=== PATIENT | female | born 2000 | race Caucasian/White ===

== ENCOUNTER 2018-12-09 20:52 | Emergency (ER) | payer SELFPAY, OTHER | END 2018-12-09 23:00 | disposition left against medical advice (07) | LOC: FTE 20:52 | DX: Z53.21 Procedure and treatment not carried out due to patient leaving prior to being seen by health care provider (principal) ==

== ENCOUNTER 2019-04-05 23:38 | Outpatient (CLI) | payer OTHER ==
[2019-04-06] MEDS: LACTATED RINGER'S 1,000 ML IV (00:50)
[2019-04-06] MEDS: ACETAMINOPHEN 1000MG/100ML IV 100 ML IVPB (01:01)
[2019-04-06 01:06] LABS: ADD MAN DIFF? NO
[2019-04-06 01:08] LABS: BASOPHILS % 0.4 % (0.0-2.0); EOSINOPHILS # 0.1 10^3/ul (0.0-0.5); EOSINOPHILS % 0.6 % (0.0-7.0); HEMATOCRIT 29.6 % (37.0-47.0); HEMOGLOBIN 9.8 g/dl (12.0-16.0); LYMPHOCYTES # 2.1 10^3/ul (0.8-2.9); LYMPHOCYTES % 19.9 % (18.0-55.0); MEAN CORPUSCULAR HEMOGLOBIN 30.7 pg (29.0-33.0); MEAN CORPUSCULAR HGB CONC 33.1 g/dl (32.0-37.0); MEAN CORPUSCULAR VOLUME 92.8 fl (72.0-104.0); MEAN PLATELET VOLUME 9.6 fl (7.4-10.4); MONOCYTE # 0.5 10^3/ul (0.3-0.9); MONOCYTES % 4.5 % (0.0-13.0); NEUTROPHIL # 7.7 10^3/ul (1.6-7.5); NEUTROPHILS % 73.6 % (30.0-74.0); PLATELET COUNT 228 10^3/UL (140-415); RED BLOOD COUNT 3.19 10^6/ul (4.20-5.40); RED CELL DISTRIBUTION WIDTH 13.8 % (11.5-14.5)
[2019-04-06 01:08] LABS: WHITE BLOOD COUNT 10.4 10^3/ul (4.8-10.8)
[2019-04-06 01:29] LABS: ADD UMIC YES; UR ASCORBIC ACID 20 mg/dL (NEGATIVE); UR BACTERIA FEW /HPF (NONE SEEN); UR BILIRUBIN (Dip) 1+ mg/dL (NEGATIVE); UR BLOOD (Dip) NEGATIVE (NEGATIVE); UR BUDDING YEAST MODERATE /HPF (NONE SEEN); UR CALCIUM OXALATE CRYSTAL MANY /HPF (NONE SEEN); UR CLARITY CLOUDY (CLEAR); UR COLOR AMBER (YELLOW); UR GLUCOSE (Dip) NEGATIVE (NEGATIVE); UR KETONES (Dip) TRACE mg/dL (NEGATIVE); UR LEUKOCYTE ESTERASE (Dip) 3+ Leu/ul (NEGATIVE); UR MUCUS MANY /HPF (NONE SEEN); UR NITRITE (Dip) NEGATIVE (NEGATIVE); UR RBC 57 /HPF (0-5); UR SPECIFIC GRAVITY (Dip) 1.034 (1.003-1.030); UR SQUAMOUS EPITHELIAL CELL MODERATE /HPF (FEW); UR TOTAL PROTEIN (Dip) 1+ mg/dl (NEGATIVE); UR UROBILINOGEN (Dip) 1+ mg/dL (NEGATIVE); UR WBC 129 /HPF (0-5)
[2019-04-06] MEDS: HYDROCODONE/APAP (5/325) TAB PO (02:21)
[2019-04-06] MEDS: SOD CHLORIDE 0.9% 1,000 ML IV (02:21)
[2019-04-06] MEDS ORDERED: CEFTRIAXONE 2 GM INJ IM (02:30)
[2019-04-06] MEDS: CEFTRIAXONE 2 GM/50 ML (PMX) 50 ML IVPB (02:30)
== END 2019-04-06 03:24 | disposition home or self-care (01) ==
LOC: OBT 23:38 → L-D 23:38 → OBT 04-06 03:24
DX: O23.42 Unspecified infection of urinary tract in pregnancy, second trimester (principal); O26.892 Other specified pregnancy related conditions, second trimester; R10.30 Lower abdominal pain, unspecified; Z3A.27 27 weeks gestation of pregnancy
CPT/HCPCS: 36415; 76815; 76817; 81001; 85025; 87086; 96360; 96361; 96365; 96368

== ENCOUNTER 2019-04-07 08:45 | Inpatient (IN) | payer OTHER ==
[2019-04-07 10:37] LABS: ADD MAN DIFF? NO
[2019-04-07 10:46] LABS: BASOPHILS % 0.1 % (0.0-2.0); EOSINOPHILS % 0.3 % (0.0-7.0); HEMATOCRIT 29.8 % (37.0-47.0); HEMOGLOBIN 9.8 g/dl (12.0-16.0); LYMPHOCYTES % 26.3 % (18.0-55.0); MEAN CORPUSCULAR HEMOGLOBIN 30.5 pg (29.0-33.0); MEAN CORPUSCULAR HGB CONC 32.9 g/dl (32.0-37.0); MEAN CORPUSCULAR VOLUME 92.8 fl (72.0-104.0); MEAN PLATELET VOLUME 9.9 fl (7.4-10.4); MONOCYTE # 0.4 10^3/ul (0.3-0.9); MONOCYTES % 4.9 % (0.0-13.0); NEUTROPHIL # 5.1 10^3/ul (1.6-7.5); NEUTROPHILS % 67.6 % (30.0-74.0); PLATELET COUNT 200 10^3/UL (140-415); RED BLOOD COUNT 3.21 10^6/ul (4.20-5.40); RED CELL DISTRIBUTION WIDTH 13.7 % (11.5-14.5)
[2019-04-07 10:46] LABS: WHITE BLOOD COUNT 7.5 10^3/ul (4.8-10.8)
[2019-04-07 10:57] LABS: ALANINE AMINOTRANSFERASE 20 IU/L (13-69); ALBUMIN 3.1 g/dl (3.3-4.9); ALKALINE PHOSPHATASE 85 IU/L (42-121); ANION GAP 7 (5-13); ASPARTATE AMINO TRANSFERASE 19 IU/L (15-46); BILIRUBIN,INDIRECT 0.3 mg/dl (0-1.1); BILIRUBIN,TOTAL 0.3 mg/dl (0.2-1.3); BLOOD UREA NITROGEN 2 mg/dl (7-20); CALCIUM 8.6 mg/dl (8.4-10.2); CARBON DIOXIDE 23 mmol/L (21-31); CHLORIDE 107 mmol/L (97-110); Estimated GFR > 60 mL/min (>60); GLUCOSE 98 mg/dl (70-220); POTASSIUM 3.7 mmol/L (3.5-5.1); SODIUM 137 mmol/L (135-144); TOTAL PROTEIN 6.2 g/dl (6.1-8.1)
[2019-04-07 15:41] LABS: ADD UMIC YES; UR ASCORBIC ACID NEGATIVE (NEGATIVE); UR BACTERIA FEW /HPF (NONE SEEN); UR BILIRUBIN (Dip) NEGATIVE (NEGATIVE); UR BLOOD (Dip) NEGATIVE (NEGATIVE); UR BUDDING YEAST FEW /HPF (NONE SEEN); UR CLARITY SLIGHTLY CLOUDY (CLEAR); UR COLOR YELLOW (YELLOW); UR GLUCOSE (Dip) NEGATIVE (NEGATIVE); UR KETONES (Dip) NEGATIVE (NEGATIVE); UR LEUKOCYTE ESTERASE (Dip) 3+ Leu/ul (NEGATIVE); UR MUCUS FEW /HPF (NONE SEEN); UR NITRITE (Dip) NEGATIVE (NEGATIVE); UR RBC 4 /HPF (0-5); UR SPECIFIC GRAVITY (Dip) 1.008 (1.003-1.030); UR SQUAMOUS EPITHELIAL CELL FEW /HPF (FEW); UR TOTAL PROTEIN (Dip) NEGATIVE (NEGATIVE); UR UROBILINOGEN (Dip) NEGATIVE (NEGATIVE); UR WBC 9 /HPF (0-5)
[2019-04-07] MEDS: MAGNESIUM CITRATE 300 ML BTL PO (15:49)
[2019-04-07] MEDS: AL HYDROX/MG HYDROX/SIMETH 30 ML CUP PO (17:35)
[2019-04-07] MEDS: ACETAMINOPHEN 325 MG TAB PO ×2 (17:36→23:26)
[2019-04-07] MEDS: LACTATED RINGER'S 1,000 ML IV ×2 (17:37→19:45)
[2019-04-08 00:15] LABS: AMPHETAMINE/METHAMPHETAMINE Negative (NEGATIVE); BARBITURATES Negative (NEGATIVE); BENZODIAZEPINES Negative (NEGATIVE); CANNABINOIDS Negative (NEGATIVE); COCAINE Negative (NEGATIVE); OPIATES Negative (NEGATIVE)
[2019-04-08] MEDS: LACTATED RINGER'S 1,000 ML IV ×3 (03:58→20:05)
[2019-04-08] MEDS: ACETAMINOPHEN 325 MG TAB PO ×2 (09:19→20:05)
[2019-04-08] MEDS: DOCUSATE SODIUM 100 MG CAP PO (21:14)
[2019-04-09] MEDS: LACTATED RINGER'S 1,000 ML IV ×3 (03:49→20:08)
[2019-04-09] MEDS: DOCUSATE SODIUM 100 MG CAP PO ×2 (09:16→20:46)
[2019-04-09] MEDS: PRENATAL VITAMIN PO (09:16)
[2019-04-09] MEDS: FERROUS SULFATE (EC) 325 MG TAB PO (11:43)
[2019-04-09] MEDS: CYCLOBENZAPRINE 10 MG TAB PO (11:43)
[2019-04-09] MEDS: FLUCONAZOLE 150 MG TAB PO (20:42)
[2019-04-09] MEDS: MAGNESIUM CITRATE 300 ML BTL PO (20:43)
[2019-04-10] MEDS: LACTATED RINGER'S 1,000 ML IV ×2 (03:10→11:20)
[2019-04-10] MEDS: PRENATAL VITAMIN PO (09:09)
[2019-04-10] MEDS: FERROUS SULFATE (EC) 325 MG TAB PO (09:09)
[2019-04-10] MEDS: DOCUSATE SODIUM 100 MG CAP PO (09:09)
[2019-04-10 09:39] LABS: ADD MAN DIFF? NO
[2019-04-10 09:49] LABS: BASOPHILS % 0.2 % (0.0-2.0); EOSINOPHILS % 0.4 % (0.0-7.0); HEMATOCRIT 35.2 % (37.0-47.0); HEMOGLOBIN 11.1 g/dl (12.0-16.0); LYMPHOCYTES # 2.1 10^3/ul (0.8-2.9); LYMPHOCYTES % 23.1 % (18.0-55.0); MEAN CORPUSCULAR HEMOGLOBIN 30.5 pg (29.0-33.0); MEAN CORPUSCULAR HGB CONC 31.5 g/dl (32.0-37.0); MEAN CORPUSCULAR VOLUME 96.7 fl (72.0-104.0); MEAN PLATELET VOLUME 9.8 fl (7.4-10.4); MONOCYTE # 0.3 10^3/ul (0.3-0.9); MONOCYTES % 2.7 % (0.0-13.0); NEUTROPHIL # 6.7 10^3/ul (1.6-7.5); NEUTROPHILS % 72.5 % (30.0-74.0); PLATELET COUNT 195 10^3/UL (140-415); RED BLOOD COUNT 3.64 10^6/ul (4.20-5.40); RED CELL DISTRIBUTION WIDTH 13.9 % (11.5-14.5)
[2019-04-10 09:49] LABS: WHITE BLOOD COUNT 9.3 10^3/ul (4.8-10.8)
== END 2019-04-10 18:41 | disposition home or self-care (01) | DRG 833 ==
LOC: OBT 08:45 → L-D 08:45 → OBT 16:45 → L-D 16:45
DX: O26.892 Other specified pregnancy related conditions, second trimester (principal); R10.9 Unspecified abdominal pain; K59.00 Constipation, unspecified; Z3A.27 27 weeks gestation of pregnancy
CPT/HCPCS: 74181; 76705; 76817; 76818; 80053; 80307; 81001; 85025; 87086

== ENCOUNTER 2019-04-16 18:10 | Outpatient (CLI) | payer OTHER ==
[2019-04-16 19:17] LABS: ADD MAN DIFF? NO; ADD UMIC YES; UR ASCORBIC ACID NEGATIVE (NEGATIVE); UR BACTERIA FEW /HPF (NONE SEEN); UR BILIRUBIN (Dip) NEGATIVE (NEGATIVE); UR BLOOD (Dip) NEGATIVE (NEGATIVE); UR CLARITY SLIGHTLY CLOUDY (CLEAR); UR COLOR YELLOW (YELLOW); UR GLUCOSE (Dip) NEGATIVE (NEGATIVE); UR KETONES (Dip) NEGATIVE (NEGATIVE); UR LEUKOCYTE ESTERASE (Dip) 1+ Leu/ul (NEGATIVE); UR MUCUS MODERATE /HPF (NONE SEEN); UR NITRITE (Dip) NEGATIVE (NEGATIVE); UR RBC 3 /HPF (0-5); UR SPECIFIC GRAVITY (Dip) 1.029 (1.003-1.030); UR SQUAMOUS EPITHELIAL CELL MODERATE /HPF (FEW); UR TOTAL PROTEIN (Dip) NEGATIVE (NEGATIVE); UR UROBILINOGEN (Dip) NEGATIVE (NEGATIVE); UR WBC 10 /HPF (0-5)
[2019-04-16 19:20] LABS: BASOPHILS % 0.3 % (0.0-2.0); EOSINOPHILS % 0.3 % (0.0-7.0); HEMATOCRIT 32.6 % (37.0-47.0); HEMOGLOBIN 10.3 g/dl (12.0-16.0); LYMPHOCYTES # 2.4 10^3/ul (0.8-2.9); LYMPHOCYTES % 24.3 % (18.0-55.0); MEAN CORPUSCULAR HEMOGLOBIN 30.2 pg (29.0-33.0); MEAN CORPUSCULAR HGB CONC 31.6 g/dl (32.0-37.0); MEAN CORPUSCULAR VOLUME 95.6 fl (72.0-104.0); MEAN PLATELET VOLUME 9.9 fl (7.4-10.4); MONOCYTE # 0.5 10^3/ul (0.3-0.9); MONOCYTES % 5.1 % (0.0-13.0); NEUTROPHIL # 6.9 10^3/ul (1.6-7.5); NEUTROPHILS % 68.9 % (30.0-74.0); PLATELET COUNT 227 10^3/UL (140-415); RED BLOOD COUNT 3.41 10^6/ul (4.20-5.40); RED CELL DISTRIBUTION WIDTH 14.1 % (11.5-14.5)
[2019-04-16 19:30] LABS: PLATELET COUNT 227 10^3/UL (140-415)
[2019-04-16 19:41] LABS: INR 0.98; PARTIAL THROMBOPLASTIN TIME 25.5 Sec (23.0-35.0); PROTIME 13.1 Sec (11.9-14.9)
[2019-04-16] MEDS: HYDROCODONE/APAP (5/325) TAB PO (19:57)
== END 2019-04-16 21:30 | disposition home or self-care (01) ==
LOC: OBT 18:10 → L-D 18:13 → OBT 21:30
DX: O26.92 Pregnancy related conditions, unspecified, second trimester (principal); V43.52XA Car driver injured in collision with other type car in traffic accident, initial encounter; Y92.410 Unspecified street and highway as the place of occurrence of the external cause; Z3A.28 28 weeks gestation of pregnancy
CPT/HCPCS: 76818; 81001; 85025; 85049; 85610; 85670; 85730; 86850; 86900; 86901

== ENCOUNTER 2019-05-05 10:06 | Outpatient (CLI) | payer OTHER ==
[2019-05-05 11:50] LABS: ADD UMIC YES; UR ASCORBIC ACID NEGATIVE (NEGATIVE); UR BACTERIA FEW /HPF (NONE SEEN); UR BILIRUBIN (Dip) NEGATIVE (NEGATIVE); UR BLOOD (Dip) 2+ mg/dL (NEGATIVE); UR CLARITY SLIGHTLY CLOUDY (CLEAR); UR COLOR YELLOW (YELLOW); UR GLUCOSE (Dip) NEGATIVE (NEGATIVE); UR KETONES (Dip) NEGATIVE (NEGATIVE); UR LEUKOCYTE ESTERASE (Dip) 3+ Leu/ul (NEGATIVE); UR MUCUS FEW /HPF (NONE SEEN); UR NITRITE (Dip) NEGATIVE (NEGATIVE); UR RBC 14 /HPF (0-5); UR SPECIFIC GRAVITY (Dip) 1.021 (1.003-1.030); UR SQUAMOUS EPITHELIAL CELL FEW /HPF (FEW); UR TOTAL PROTEIN (Dip) NEGATIVE (NEGATIVE); UR UROBILINOGEN (Dip) NEGATIVE (NEGATIVE); UR WBC 37 /HPF (0-5)
[2019-05-05] MEDS: CEFTRIAXONE 1 GM INJ IM (14:20)
== END 2019-05-05 16:00 | disposition home or self-care (01) ==
LOC: OBT 10:06 → L-D 10:06 → OBT 16:00
DX: O23.43 Unspecified infection of urinary tract in pregnancy, third trimester (principal); Z3A.31 31 weeks gestation of pregnancy
CPT/HCPCS: 76815; 76817; 76818; 81001; 82731; 87086

== ENCOUNTER 2019-05-10 21:44 | Outpatient (CLI) | payer OTHER ==
[2019-05-10 23:26] LABS: ADD UMIC YES; UR ASCORBIC ACID NEGATIVE (NEGATIVE); UR BACTERIA FEW /HPF (NONE SEEN); UR BILIRUBIN (Dip) NEGATIVE (NEGATIVE); UR BLOOD (Dip) 1+ mg/dL (NEGATIVE); UR CLARITY CLEAR (CLEAR); UR COLOR YELLOW (YELLOW); UR GLUCOSE (Dip) NEGATIVE (NEGATIVE); UR KETONES (Dip) NEGATIVE (NEGATIVE); UR LEUKOCYTE ESTERASE (Dip) 2+ Leu/ul (NEGATIVE); UR NITRITE (Dip) NEGATIVE (NEGATIVE); UR RBC 4 /HPF (0-5); UR SPECIFIC GRAVITY (Dip) 1.012 (1.003-1.030); UR SQUAMOUS EPITHELIAL CELL FEW /HPF (FEW); UR TOTAL PROTEIN (Dip) NEGATIVE (NEGATIVE); UR UROBILINOGEN (Dip) NEGATIVE (NEGATIVE); UR WBC 12 /HPF (0-5)
[2019-05-11] MEDS ORDERED: TERBUTALINE 1 ML (00:54)
[2019-05-11] MEDS: TERBUTALINE 1 MG/ML INJ SC (01:06)
== END 2019-05-11 02:00 | disposition home or self-care (01) ==
LOC: OBT 21:44 → L-D 21:45
DX: O62.9 Abnormality of forces of labor, unspecified (principal); O46.8X3 Other antepartum hemorrhage, third trimester; Z3A.32 32 weeks gestation of pregnancy
CPT/HCPCS: 76817; 76818; 81001; 82731; 87086

== ENCOUNTER 2019-05-20 18:42 | Outpatient (CLI) | payer OTHER | END 2019-05-20 22:33 | disposition home or self-care (01) | LOC: OBT 18:42 → L-D 18:43 → OBT 22:33 | DX: O47.03 False labor before 37 completed weeks of gestation, third trimester (principal); O09.213 Supervision of pregnancy with history of pre-term labor, third trimester; Z3A.33 33 weeks gestation of pregnancy | CPT/HCPCS: 76818; 82731 ==

== ENCOUNTER 2019-06-03 15:31 | Inpatient (IN) | payer OTHER ==
[2019-06-03 16:10] LABS: ADD MAN DIFF? NO
[2019-06-03 16:12] LABS: WHITE BLOOD COUNT 9.1 10^3/ul (4.8-10.8)
[2019-06-03 16:12] LABS: BASOPHILS % 0.2 % (0.0-2.0); EOSINOPHILS % 0.4 % (0.0-7.0); HEMATOCRIT 34.1 % (37.0-47.0); LYMPHOCYTES % 21.4 % (18.0-55.0); MEAN CORPUSCULAR HEMOGLOBIN 30.9 pg (29.0-33.0); MEAN CORPUSCULAR HGB CONC 32.3 g/dl (32.0-37.0); MEAN CORPUSCULAR VOLUME 95.8 fl (72.0-104.0); MEAN PLATELET VOLUME 9.8 fl (7.4-10.4); MONOCYTE # 0.5 10^3/ul (0.3-0.9); MONOCYTES % 5.9 % (0.0-13.0); NEUTROPHIL # 6.5 10^3/ul (1.6-7.5); NEUTROPHILS % 71.2 % (30.0-74.0); PLATELET COUNT 212 10^3/UL (140-415); RED BLOOD COUNT 3.56 10^6/ul (4.20-5.40); RED CELL DISTRIBUTION WIDTH 13.2 % (11.5-14.5)
[2019-06-03 16:15] LABS: ADD UMIC YES; UR ASCORBIC ACID NEGATIVE (NEGATIVE); UR BILIRUBIN (Dip) NEGATIVE (NEGATIVE); UR BLOOD (Dip) NEGATIVE (NEGATIVE); UR CLARITY CLEAR (CLEAR); UR COLOR YELLOW (YELLOW); UR GLUCOSE (Dip) NEGATIVE (NEGATIVE); UR KETONES (Dip) TRACE mg/dL (NEGATIVE); UR LEUKOCYTE ESTERASE (Dip) 1+ Leu/ul (NEGATIVE); UR MUCUS FEW /HPF (NONE SEEN); UR NITRITE (Dip) NEGATIVE (NEGATIVE); UR RBC 3 /HPF (0-5); UR SQUAMOUS EPITHELIAL CELL FEW /HPF (FEW); UR TOTAL PROTEIN (Dip) NEGATIVE (NEGATIVE); UR UROBILINOGEN (Dip) NEGATIVE (NEGATIVE); UR WBC 7 /HPF (0-5)
[2019-06-03] MEDS: LACTATED RINGER'S 1,000 ML IV ×2 (16:16→17:57)
[2019-06-03 16:31] LABS: ALANINE AMINOTRANSFERASE 21 IU/L (13-69); ALBUMIN 3.1 g/dl (3.3-4.9); ALBUMIN/GLOBULIN RATIO 0.96; ALKALINE PHOSPHATASE 128 IU/L (42-121); ANION GAP 4 (5-13); ASPARTATE AMINO TRANSFERASE 22 IU/L (15-46); BILIRUBIN,INDIRECT 0.6 mg/dl (0-1.1); BILIRUBIN,TOTAL 0.6 mg/dl (0.2-1.3); BLOOD UREA NITROGEN 6 mg/dl (7-20); CALCIUM 8.7 mg/dl (8.4-10.2); CARBON DIOXIDE 24 mmol/L (21-31); CHLORIDE 106 mmol/L (97-110); CREATININE 0.42 mg/dl (0.44-1.00); Estimated GFR > 60 mL/min (>60); GLUCOSE 82 mg/dl (70-220); POTASSIUM 3.9 mmol/L (3.5-5.1); SODIUM 134 mmol/L (135-144); TOTAL PROTEIN 6.3 g/dl (6.1-8.1)
[2019-06-03] MEDS ORDERED: ONDANSETRON 4 MG INJ IV (17:30)
[2019-06-03] MEDS ORDERED: AL HYDROX/MG HYDROX/SIMETH 30 ML CUP PO (17:30)
[2019-06-03] MEDS ORDERED: TERBUTALINE 1 MG/ML INJ SC (17:30)
[2019-06-03] MEDS ORDERED: DIPHENHYDRAMINE 25 MG CAP PO (17:30)
[2019-06-03] MEDS: CLINDAMYCIN 900 MG (PMX) 50 ML IVPB (17:52)
[2019-06-03 18:01] LABS: AMPHETAMINE/METHAMPHETAMINE Negative (NEGATIVE); BARBITURATES Negative (NEGATIVE); BENZODIAZEPINES Negative (NEGATIVE); CANNABINOIDS Negative (NEGATIVE); COCAINE Negative (NEGATIVE); OPIATES Negative (NEGATIVE)
[2019-06-03] MEDS: BETAMET NA PHOS/AC(6 MG/ML) 2 ML INJ SYG IM (18:20)
[2019-06-03] MEDS: morphine 2 MG INJ IV (18:21)
[2019-06-03] MEDS: PRENATAL VITAMIN PO (20:23)
[2019-06-03] MEDS: DOCUSATE SODIUM 100 MG CAP PO (20:23)
[2019-06-03] MEDS: metroNIDAZOLE 500 MG/NS (PMX) 100 ML IVPB (21:28)
[2019-06-04] MEDS: LACTATED RINGER'S 1,000 ML IV ×3 (01:15→02:00)
[2019-06-04] MEDS: metroNIDAZOLE 500 MG/NS (PMX) 100 ML IVPB ×2 (01:20→05:34)
[2019-06-04] MEDS: CLINDAMYCIN 900 MG (PMX) 50 ML IVPB ×2 (02:00→09:40)
[2019-06-04 06:28] LABS: ADD MAN DIFF? NO
[2019-06-04 06:30] LABS: WHITE BLOOD COUNT 9.4 10^3/ul (4.8-10.8)
[2019-06-04 06:31] LABS: BASOPHILS % 0.1 % (0.0-2.0); HEMATOCRIT 32.6 % (37.0-47.0); HEMOGLOBIN 10.7 g/dl (12.0-16.0); LYMPHOCYTES # 1.4 10^3/ul (0.8-2.9); LYMPHOCYTES % 14.6 % (18.0-55.0); MEAN CORPUSCULAR HEMOGLOBIN 30.8 pg (29.0-33.0); MEAN CORPUSCULAR HGB CONC 32.8 g/dl (32.0-37.0); MEAN CORPUSCULAR VOLUME 93.9 fl (72.0-104.0); MEAN PLATELET VOLUME 10.2 fl (7.4-10.4); MONOCYTE # 0.2 10^3/ul (0.3-0.9); MONOCYTES % 2.3 % (0.0-13.0); NEUTROPHIL # 7.7 10^3/ul (1.6-7.5); NEUTROPHILS % 81.8 % (30.0-74.0); PLATELET COUNT 211 10^3/UL (140-415); RED BLOOD COUNT 3.47 10^6/ul (4.20-5.40); RED CELL DISTRIBUTION WIDTH 13.2 % (11.5-14.5)
[2019-06-04] MEDS: PRENATAL VITAMIN PO (08:35)
[2019-06-04] MEDS: DOCUSATE SODIUM 100 MG CAP PO (08:35)
[2019-06-04] MEDS: morphine 2 MG INJ IV (08:36)
[2019-06-04] MEDS: BETAMET NA PHOS/AC(6 MG/ML) 2 ML INJ SYG IM (13:19)
== END 2019-06-04 14:52 | disposition home or self-care (01) | DRG 833 ==
LOC: OBT 15:31 → L-D 15:31 → OBT 16:45 → L-D 16:45
DX: O99.613 Diseases of the digestive system complicating pregnancy, third trimester (principal); Z3A.35 35 weeks gestation of pregnancy; O23.43 Unspecified infection of urinary tract in pregnancy, third trimester
CPT/HCPCS: 36415; 76705; 76815; 76818; 80053; 80307; 81001; 85025; 86900; 86901; 87086

== ENCOUNTER 2019-06-10 18:19 | Outpatient (CLI) | payer OTHER ==
[2019-06-10 20:59] LABS: RUPTURE FETAL MEMBRANES NEGATIVE (NEGATIVE)
== END 2019-06-10 21:55 | disposition home or self-care (01) ==
LOC: OBT 18:19 → L-D 18:19 → OBT 21:55
DX: O41.03X0 Oligohydramnios, third trimester, not applicable or unspecified (principal); Z3A.36 36 weeks gestation of pregnancy
CPT/HCPCS: 76818; 84112

== ENCOUNTER 2019-06-12 20:06 | Emergency (ER) | payer OTHER ==
[2019-06-12 22:34] LABS: ADD UMIC NO; UR ASCORBIC ACID NEGATIVE (NEGATIVE); UR BILIRUBIN (Dip) NEGATIVE (NEGATIVE); UR BLOOD (Dip) NEGATIVE (NEGATIVE); UR CLARITY CLEAR (CLEAR); UR COLOR STRAW (YELLOW); UR GLUCOSE (Dip) NEGATIVE (NEGATIVE); UR KETONES (Dip) NEGATIVE (NEGATIVE); UR LEUKOCYTE ESTERASE (Dip) NEGATIVE Leu/ul (NEGATIVE); UR NITRITE (Dip) NEGATIVE (NEGATIVE); UR SPECIFIC GRAVITY (Dip) 1.005 (1.003-1.030); UR TOTAL PROTEIN (Dip) NEGATIVE (NEGATIVE); UR UROBILINOGEN (Dip) NEGATIVE (NEGATIVE)
== END 2019-06-12 23:05 | disposition home or self-care (01) ==
LOC: FTE 20:06
DX: O26.893 Other specified pregnancy related conditions, third trimester (principal); R50.9 Fever, unspecified; Z3A.36 36 weeks gestation of pregnancy
CPT/HCPCS: 81003; 87086; 99283

== ENCOUNTER 2019-06-12 23:16 | Outpatient (CLI) | payer OTHER ==
[2019-06-13 00:58] LABS: ADD MAN DIFF? NO
[2019-06-13 01:01] LABS: BASOPHILS % 0.3 % (0.0-2.0); EOSINOPHILS % 0.4 % (0.0-7.0); HEMATOCRIT 32.6 % (37.0-47.0); HEMOGLOBIN 10.7 g/dl (12.0-16.0); LYMPHOCYTES # 2.9 10^3/ul (0.8-2.9); LYMPHOCYTES % 30.6 % (18.0-55.0); MEAN CORPUSCULAR HEMOGLOBIN 30.9 pg (29.0-33.0); MEAN CORPUSCULAR HGB CONC 32.8 g/dl (32.0-37.0); MEAN CORPUSCULAR VOLUME 94.2 fl (72.0-104.0); MEAN PLATELET VOLUME 9.7 fl (7.4-10.4); MONOCYTE # 0.6 10^3/ul (0.3-0.9); MONOCYTES % 5.9 % (0.0-13.0); NEUTROPHIL # 5.7 10^3/ul (1.6-7.5); NEUTROPHILS % 60.9 % (30.0-74.0); PLATELET COUNT 243 10^3/UL (140-415); RED BLOOD COUNT 3.46 10^6/ul (4.20-5.40); RED CELL DISTRIBUTION WIDTH 13.2 % (11.5-14.5)
[2019-06-13 01:01] LABS: WHITE BLOOD COUNT 9.3 10^3/ul (4.8-10.8)
[2019-06-13 01:11] LABS: ADD UMIC NO; UR ASCORBIC ACID NEGATIVE (NEGATIVE); UR BILIRUBIN (Dip) NEGATIVE (NEGATIVE); UR BLOOD (Dip) NEGATIVE (NEGATIVE); UR CLARITY CLEAR (CLEAR); UR COLOR STRAW (YELLOW); UR GLUCOSE (Dip) NEGATIVE (NEGATIVE); UR KETONES (Dip) NEGATIVE (NEGATIVE); UR LEUKOCYTE ESTERASE (Dip) NEGATIVE Leu/ul (NEGATIVE); UR NITRITE (Dip) NEGATIVE (NEGATIVE); UR SPECIFIC GRAVITY (Dip) 1.011 (1.003-1.030); UR TOTAL PROTEIN (Dip) NEGATIVE (NEGATIVE); UR UROBILINOGEN (Dip) NEGATIVE (NEGATIVE)
[2019-06-13 01:18] LABS: ALANINE AMINOTRANSFERASE 23 IU/L (13-69); ALBUMIN 2.9 g/dl (3.3-4.9); ALBUMIN/GLOBULIN RATIO 0.93; ALKALINE PHOSPHATASE 128 IU/L (42-121); ANION GAP 5 (5-13); ASPARTATE AMINO TRANSFERASE 19 IU/L (15-46); BILIRUBIN,INDIRECT 0.4 mg/dl (0-1.1); BILIRUBIN,TOTAL 0.4 mg/dl (0.2-1.3); BLOOD UREA NITROGEN 5 mg/dl (7-20); CALCIUM 8.5 mg/dl (8.4-10.2); CARBON DIOXIDE 25 mmol/L (21-31); CHLORIDE 105 mmol/L (97-110); CREATININE 0.45 mg/dl (0.44-1.00); Estimated GFR > 60 mL/min (>60); GLUCOSE 103 mg/dl (70-220); POTASSIUM 3.7 mmol/L (3.5-5.1); SODIUM 135 mmol/L (135-144)
== END 2019-06-13 02:27 | disposition home or self-care (01) ==
LOC: OBT 23:16 → L-D 23:19
DX: O26.893 Other specified pregnancy related conditions, third trimester (principal); Z3A.37 37 weeks gestation of pregnancy; R52 Pain, unspecified; R68.83 Chills (without fever)
CPT/HCPCS: 76818; 80053; 85025

== ENCOUNTER 2019-06-14 14:25 | Outpatient (CLI) | payer OTHER | END 2019-06-14 16:50 | disposition home or self-care (01) | LOC: OBT 14:25 → L-D 14:25 → OBT 16:50 | DX: O62.9 Abnormality of forces of labor, unspecified (principal); Z3A.37 37 weeks gestation of pregnancy | CPT/HCPCS: 76815; 76818 ==